=== PATIENT | male | born 1955 | race American Indian/Alaskan Native ===

== ENCOUNTER 2017-02-11 21:14 | Inpatient (IN) | payer MEDICAID ==
[2017-02-11 21:58] LABS: BASO # 0.1 K/uL (0.0-0.2); BASO % 0.7 % (0.0-2.0); EOS # 0.1 K/uL (0.0-0.7); EOS % 0.9 % (0.0-4.0); HEMATOCRIT 37.7 % (35.0-51.0); LYMPH % 39.3 % (20.0-40.0); MEAN CELL VOLUME 83.2 fL (80.0-94.0); MEAN CORPUSCULAR HEMOGLOBIN 26.5 pg (27.0-31.0); MEAN CORPUSCULAR HGB CONC 31.9 g/dL (33.0-37.0); MEAN PLATELET VOLUME 7.8 fL (7.2-11.7); MONO # 0.7 K/uL (0.0-0.8); MONO % 6.5 % (0.0-10.0); RED CELL DISTRIBUTION WIDTH 15.6 % (11.5-14.5); WHITE BLOOD COUNT 10.1 K/uL (4.8-10.8)
[2017-02-11 22:03] LABS: RBC URINE < 1 /hpf (0-3); URINE BILIRUBIN NEGATIVE (NEGATIVE); URINE BLOOD NEGATIVE (NEGATIVE); URINE COLOR Yellow (YELLOW); URINE GLUCOSE (UA) NORMAL (Normal); URINE KETONE TRACE mg/dL (NEGATIVE); URINE LEUKOCYTE ESTERASE NEG Leu/uL (Negative); URINE PROTEIN 1+ mg/dL (NEGATIVE); URINE UROBILINOGEN NORMAL mg/dL (0.2-1.0); WBC URINE 1 /hpf (0-5)
[2017-02-11 22:07] LABS: CHLORIDE 99 mmol/L (98-107); POTASSIUM 3.7 mmol/L (3.6-5.2); SODIUM 140 mmol/L (132-148)
[2017-02-11 22:09] LABS: GFR AFRICAN-AMERICAN > 60
[2017-02-11 22:10] LABS: ALB/GLOB RATIO 1.1 (1.0-2.1); ALKALINE PHOSPHATASE 104 U/L (38-126); ALT/SGPT 21 U/L (21-72); AST/SGOT 27 U/L (17-59); BILIRUBIN,TOTAL 0.3 mg/dL (0.2-1.3); BLOOD UREA NITROGEN 13 mg/dL (9-20); CALCIUM 8.6 mg/dl (8.6-10.4); CARBON DIOXIDE 26 mmol/L (22-30); GLUCOSE,RANDOM 111 mg/dL (75-110); TOTAL PROTEIN 7.6 g/dL (6.3-8.3)
[2017-02-11 22:11] LABS: ALCOHOL SERUM < 10 mg/dl (0-10)
--- NOTE | 2017-02-12 04:07 | C.PDOC ---
History Of Present Illness The patient, a 61 y/o male, presents to the ED requesting heroin detox. Patient states his last use was earlier today. He denies suicidal/homicidal ideation and has no physical complaints at this time. Time Seen by Provider: 02/11/17 22:37 Chief Complaint (Nursing): Substance Abuse History Per: Patient History/Exam Limitations: intoxication Onset/Duration Of Symptoms: Hrs Current Symptoms Are (Timing): Still Present Suicide/Self Injury Attempted (Context): None Modifying Factor(s): Other (+heroin) Associated Symptoms: denies: Suicidal Thoughts, Suicidal Plan Involuntary Hold By: None Recent travel outside of the [place]: No Additional History Per: Patient Past Medical History Reviewed: Historical Data, Nursing Documentation, Vital Signs Vital Signs: Last Vital Signs Temp 97.8 F 02/12/17 01:36 Pulse 80 02/12/17 01:36 Resp 20 02/12/17 01:36 BP 148/87 02/12/17 01:36 Pulse Ox 97 02/12/17 04:14 - Medical History PMH: Anxiety, Depression, HTN Denies: Diabetes, Hepatitis, HIV, Chronic Kidney Disease, Seizures, Sexually Transmitted Disease Surgical History: No Surg Hx - [facility] Procedures DETOXIFICATION SERVICES FOR SUBSTANCE ABUSE TREATMENT (05/24/16) GROUP PSYCHOTHERAPY (10/30/16) INDIV PSYCHOTHERAPY FOR SUBSTANCE ABUSE TREATMENT, SUPPORT (10/30/16) INDIVIDUAL PSYCHOTHERAPY, SUPPORTIVE (10/30/16) MEDICATION MANAGEMENT (10/30/16) MEDS MGMT FOR SUBSTANCE ABUSE TREATMENT, METHADONE MAINT (10/30/16) Family History: States: Unknown Family Hx - Social History Hx Tobacco Use: Yes Hx Alcohol Use: No Hx Substance Use: Yes - Immunization History Hx Tetanus Toxoid Vaccination: Yes Hx Influenza Vaccination: No Hx Pneumococcal Vaccination: No Review Of Systems Except As Marked, All Systems Reviewed And Found Negative. Psych: Positive for: Other (+request for heroin detox ). Negative for: Suicidal ideation Physical Exam - Physical Exam Appears: No Acute Distress Skin: Normal Color, Warm, Dry Head: Atraumatic, Normacephalic Eye(s): bilateral: PERRL, EOMI, Abnormal Pupil (small) Oral Mucosa: Moist Neck: Supple Chest: Symmetrical, No Deformity Cardiovascular: Rhythm Regular Respiratory: Normal Breath Sounds Extremity: Normal ROM, Capillary Refill (less than 2 seconds) Neurological/Psych: Oriented x3, Normal Speech Gait: Steady ED Course And Treatment - Laboratory Results Result Diagrams: 02/11/17 21:55 02/11/17 21:55 O2 Sat by Pulse Oximetry: 97 (on RA) Pulse Ox Interpretation: Normal Progress Note: Labs ordered and reviewed. Patient was found to have elevated blood pressure. Pt states he is prescribed Vasotec BID; he states he took his first dose today but has not yet taken the second dose. Patient received Clonidine PO, after his blood pressure was still elevated. Patient was evaluated by sheet ironworker. Patient was medically clear for detox admission. Disposition - Disposition Disposition: HOSPITALIZED Disposition Time: 07:06 Condition: GOOD - Clinical Impression Clinical Impression: Heroin abuse, Opiate abuse, continuous - PA / REFRIGERATING ENGINEER / Resident Statement MD/DO has reviewed & agrees with the documentation as recorded. - Scribe Statement The provider has reviewed the documentation as recorded by the Scribe (Alycia Em) All medical record entries made by the Scribe were at my direction and personally dictated by me. I have reviewed the chart and agree that the record accurately reflects my personal performance of the history, physical exam, medical decision making, and the department course for this patient. I have also personally directed, reviewed, and agree with the discharge instructions and disposition.
[2017-02-12] MEDS ORDERED: Aluminum Hydroxide/Magnesium Hydroxide Susp (30 mL) PO PRN (12:58)
[2017-02-12] MEDS ORDERED: Buprenorphine Hydrochloride 2 mg SL ONE ×2 (13:00)
--- NOTE | 2017-02-12 20:40 | PCM.PSYCH ---
Initial Psychiatric Evaluation - Initial Psychiatric Evaluation Type of Admission: Voluntary Legal Status: Capacity Chief Complaint (in patient's own words): I need help. Patient's Reaction to Hospitalization: I finally have a detox bed. History of Present Illness and Precipitating Events: Pt is 61yro single, living with sister, unemployed male, who started using heroin at age 39. He never used painkillers. He snorts 8-10 packs of heroin daily. Pt. denies use of any other substances. His mother is alive; his father is . He is 3rd in a sibship of 5; he is the only male in this sibship. Pt denies any family history of mental illness or substance abuse. Pt has never been in a psychiatric hospital nor on psychiatric meds. Pt graduated high school. 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 Pt has been in detox once before in [facility]. Pt has had one rehab at [facility]. He was sober from [id number]. Pt went to meetings at this time. Pt relapsed after losing his job at a SNF. He has hypertension. He had a DWI. Pt never served in the . Current Medications: Active Medications Generic Name Dose Route Start Last Admin Trade Name Freq PRN Reason Stop Dose Admin Acetaminophen 650 mg 02/12/17 12:57 Tylenol 325mg Tab PO Q4H PRN Fever greater than 101 F Al Hydrox/Mg Hydrox/Simethicone 30 ml 02/12/17 12:58 Maalox 30 Ml PO Q6 PRN Indigestion / Heartburn Buprenorphine HCl 6 mg 02/13/17 10:00 Subutex SL 02/16/17 09:59 .TAPER NANCY Taper Clonidine HCl 0.1 mg 02/12/17 12:58 02/12/17 19:55 Catapres PO 0.1 mg Q6 PRN Administration Other Enalapril Maleate 20 mg 02/12/17 20:15 Vasotec PO DAILY NANCY Hydroxyzine HCl 25 mg 02/12/17 00:35 02/12/17 01:14 Atarax PO 25 mg Q6 PRN Administration Anxiety Influenza Virus Vaccine 45 mcg 02/15/17 10:00 Afluria IM 02/15/17 10:01 .ONCE ONE Ondansetron HCl 4 mg 02/12/17 00:36 Zofran Tab PO Q6 PRN Nausea/Vomiting Pneumococcal Polyvalent Vaccine 0.5 ml 02/15/17 10:00 Pneumovax 23 Vaccine IM 02/15/17 10:01 .ONCE ONE Trazodone HCl 50 mg 02/12/17 00:35 02/12/17 01:14 Desyrel PO 50 mg HS PRN Administration Insomnia Past Psychiatric History - Past Psychiatric History Previous Treatment History: None Pertinent Medical Hx (Current Medical&Sleep Prob, Allergies): Allergies Allergy/AdvReac Type Severity Reaction Status Date / Time No Known Allergies Allergy Verified 10/30/16 00:52 Enalapril Maleate [Vasotec] 20 mg PO DAILY 10/30/16 Review of Systems - Constitutional Constitutional: Malaise - EENT Eyes: UNREMARKABLE Ears: UNREMARKABLE Nose/Mouth/Throat: UNREMARKABLE - Cardiovascular Cardiovascular: UNREMARKABLE - Respiratory Respiratory: UNREMARKABLE - Gastrointestinal Gastrointestinal: Cramping - Genitourinary Genitourinary: UNREMARKABLE - Reproductive: Male Reproductive:Male: UNREMARKABLE - Musculoskeletal Musculoskeletal: Arthralgias, Myalgias - Integumentary Integumentary: UNREMARKABLE - Neurological Neurological: UNREMARKABLE - Psychiatric Psychiatric: UNREMARKABLE - Endocrine Endocrine: UNREMARKABLE - Hematologic/Lymphatic Hematologic: UNREMARKABLE Mental Status Examination - Personal Presentation Personal Presentation: Looks stated age - Affect Affect: Constricted - Motor Activity Motor Activity: Calm - Reliability in Providing Information Reliability in Providing Information: Good - Speech Speech: Organized - Mood Mood: Anxious - Formal Thought Process Formal Thought Process: No Impairment - Cognitive Functions Orientation: Person, Place, Situation, Time Sensorium: Alert Attention/Concentration: Attentive Abstract Thinking: As evidence by literal perception of proverbs Estimate of Intelligence: Average Judgement: Intact, as evidence by: Good judgement Memory: Recent intact, as evidence by: Ability to recall events of the day, Remote intact, as evidenced by: Abilit to recall sig. life events - Risk Risk: Withdrawal - Strength & Assets Inventory Strength & Assets Inventory: Family support, Employment history DSM 5 DX - Recommended/Plan of Treatment Treatment Recommendations and Plan of Treatment: Opiate withdrawal, severe Opiate use disorder, severe Opiate withdrawal, severe, Subutex protocol, Group, Milieu, Recreational, Individual psychotherapy, CBT and CA Opiate use disorder, severe, Group, Milieu, Recreational, Individual psychotherapy, CBT and CA Projected ELOS: 5 days Prognosis: good Discharge Plan and Discharge Criteria: no acute withdrawal symptoms - Smoking Cessation Smoking Cessation Initiated: No
[2017-02-13] MEDS: Buprenorphine Hydrochloride 2 mg SL SCH (10:10)
--- NOTE | 2017-02-13 15:17 | PCM.PYCHPN ---
Psychiatric Progress Note - Psychiatric Progress Note Problems Identified/Issues Discussed: Pt was seen, chart reviewed and case discussed. Pt reports detox is going "pretty good." Pt plans to attend [facility] out- patient program immediately following discharge to maintain sobriety. States he tried in-patient rehab in the past and did not like it. Also not interested in medical management. Pt is also considering moving to [place]; states he was able to stay sober for 8 years after moving away. Psychiatric education and support given. Mental Status Examination - Cognitive Function Orientation: Person, Place, Situation, Time - Mood Mood: Anxious - Affect Affect: Constricted - Formal Thought Process Formal Thought Process: No Impairment - Homicidal Ideation Homicidal Ideation: No Goal/Treatment Plan - Goal/Treatment Plan Progress Toward Problem(s) and Goals/Treatment Plan: 1. Opiate Withdrawal -continue Subutex taper protocol -Supportive psychotherapy, PA, CBT -Continue group activities Estimated Date of D/C: 02/15/17
[2017-02-13] MEDS: Albuterol HFA 90 mcg/actuation (8 g) INH PRN (19:15)
[2017-02-14] MEDS: Albuterol HFA 90 mcg/actuation (8 g) INH PRN (09:08)
[2017-02-14] MEDS: Buprenorphine Hydrochloride 2 mg SL SCH (09:10)
[2017-02-14 11:09] VITALS: RESP 18
--- NOTE | 2017-02-14 13:30 | PCM.PYCHPN ---
Psychiatric Progress Note - Psychiatric Progress Note Patient seen today, length of contact: 16 min Patient Chief Complaint: "I can't leave today" Problems Identified/Issues Discussed: Pt was seen, chart reviewed and case discussed. He says he is still withdrawing (has mild sxs) and that he has his bro in law at home who will leave tomorrow. Since he uses heroin too, pt does not want to be around him. Support and psychoed given ND used Detox is extended one day due to sxs Medication Change: Yes (sbx detox changes daily, add jose e) Medical Record Reviewed: Yes Mental Status Examination - Cognitive Function Orientation: Person, Place, Situation, Time Memory: Impaired Attention: WNL Concentration: Poor Association: WNL Fund of Knowledge: WNL - Mood Mood: Anxious - Affect Affect: Constricted - Speech Speech: Appropriate - Formal Thought Process Formal Thought Process: No Impairment - Suicidal Ideation Suicidal Ideation: No - Homicidal Ideation Homicidal Ideation: No Goal/Treatment Plan - Goal/Treatment Plan Need for Continued Stay: Discharge may exacerbated symptoms, Severe functional impairment Progress Toward Problem(s) and Goals/Treatment Plan: Opiate Withdrawal: -continue Subutex taper protocol -Supportive psychotherapy, ND, CBT -Continue group activities - ND and CBt HTN: - Add jose e, whcih he used before Estimated Date of D/C: 02/16/17
[2017-02-15] MEDS: Buprenorphine Hydrochloride 2 mg SL SCH (09:01)
[2017-02-15] MEDS: Albuterol HFA 90 mcg/actuation (8 g) INH PRN (09:01)
[2017-02-15] MEDS ORDERED: Influenza Virus Vaccine 45 mcg/0.5 ml Syr IM ONE (10:00)
[2017-02-15] MEDS ORDERED: Pneumococcal 23-Valent Vaccine IM ONE (10:00)
--- NOTE | 2017-02-15 12:28 | PCM.PYCHPN ---
Psychiatric Progress Note - Psychiatric Progress Note Patient seen today, length of contact: 15 min Patient Chief Complaint: "I need one more day" Problems Identified/Issues Discussed: The pt is seen, chart reviewed, case discussed with staff. The pt is compliant with medications and reports no side-effects. Symptoms are improving but needs more time to stabilize. See note from yesterday re his relapse risk if he leaves today. After care discussed, support and psychoeducation given. Medication Change: Yes (sbx detox changes daily, add jose e) Medical Record Reviewed: Yes Mental Status Examination - Cognitive Function Orientation: Person, Place, Situation, Time Memory: Impaired Attention: WNL Concentration: Poor Association: WNL Fund of Knowledge: WNL - Mood Mood: Anxious - Affect Affect: Constricted - Speech Speech: Appropriate - Formal Thought Process Formal Thought Process: No Impairment - Suicidal Ideation Suicidal Ideation: No - Homicidal Ideation Homicidal Ideation: No Goal/Treatment Plan - Goal/Treatment Plan Need for Continued Stay: Discharge may exacerbated symptoms, Severe functional impairment Progress Toward Problem(s) and Goals/Treatment Plan: Opiate Withdrawal: -continue Subutex taper protocol -Supportive psychotherapy, [place], CBT -Continue group activities - TX and CBt HTN: - Added yimi dorantes he used before Estimated Date of D/C: 02/16/17
[2017-02-16 06:15] VITALS: PULSE 64; TEMP 98.2; O2SAT 99
--- NOTE | 2017-02-16 08:52 | PCM.PYCHDC ---
Mental Status Examination - Mental Status Examination Orientation: Person, Place, Situation, Time Memory: Impaired Mood: Anxious Affect: Constricted Speech: Appropriate Attention: WNL Concentration: Poor Association: WNL Fund of Knowledge: WNL Formal Thought Process: No Impairment Suicidal Ideation: No Current Homicidal Ideation?: No Discharge Summary - Discharge Note Reason for Hospitalization: Heroin detox Consultations:: List each consultation separately and include: 1. Reason for request. 2. Findings. 3. Follow-up Summary of Hospital Course include:: 1. Description of specific treatment plan utilized for patients during their course of treatmen. 2. Summarize the time- course for resolution of acute symptoms and/or regressed behaviors. 3. Describe issues identified and worked on during hospitalization. 4. Describe medication utilized. 5. Describe medical problems identified and treated. 6. Reassessment of suicide risk Summary of Hospital Course: Hospital course: The pt was admitted and started on treatment with psychotherapy, support, psychoeducation and medications. VA and CBT used. The pt attended groups and activities, as well as milieu therapy. All the risks and benefits of medications are discussed and the patient understood and agreed. After care discussed with the patient. He decided to go to [facility] but he asked to stay one more day to prevent relapse. - Final Diagnosis (DSM 5) Condition upon Discharge: GOOD DSM 5: Opioid withdrawl opioid use d/o - severe Disposition: HOME/ ROUTINE Follow-up Treatment Plan: Continue below medications after discharge. Follow after care plan as discussed. [facility] Use relapse prevention skills Return to ER or call 911 if suicidal, homicidal or symptoms relapse. Stay away from stress, alcohol and drugs. Prescriptions/Medication Reconciliation: traZODone [Desyrel] 100 mg PO HS PRN #30 tab PRN Reason: Insomnia amLODIPine [Norvasc] 5 mg PO DAILY #30 tab Enalapril Maleate [Vasotec] 20 mg PO DAILY #30 tab Albuterol HFA [Ventolin HFA 90 mcg/actuation (8 g)] 1 puff INH RQ4 PRN #1 inhaler PRN Reason: sibilant musical ronchi - Smoking Cessation Smoking Cessation Medication prescribed: No - Antipsychotic Medications Pt discharged on 2 or more routine antipsychotic medications: No
[2017-02-16 09:26] VITALS: BP 152/97
[2017-02-16] MEDS ORDERED: Buprenorphine Hydrochloride 2 mg SL ONE (10:00)
== END 2017-02-16 10:50 | disposition home or self-care (01) | DRG 745 ==
LOC: C.ER 21:14 → C.7D 23:50
PROVIDERS: ADMIT Psychiatry & Neurology Psychiatry; ATTEND Psychiatry & Neurology Psychiatry
PROC: HZ2ZZZZ Detoxification Services for Substance Abuse Treatment (ICD-10-PCS; principal; 2017-02-11)
PROC: HZ59ZZZ Individual Psychotherapy for Substance Abuse Treatment, Supportive (ICD-10-PCS; 2017-02-11)
PROC: HZ46ZZZ Group Counseling for Substance Abuse Treatment, Psychoeducation (ICD-10-PCS; 2017-02-11)
DX: F11.23 Opioid dependence with withdrawal (principal); I10 Essential (primary) hypertension; F17.210 Nicotine dependence, cigarettes, uncomplicated; F32.9 Major depressive disorder, single episode, unspecified; Z23 Encounter for immunization

== ENCOUNTER 2018-06-24 16:16 | Inpatient (IN) | payer MEDICAID, OTHER ==
[2018-06-24 17:09] LABS: BASO % 0.5 % (0.0-2.0); EOS # 0.1 K/uL (0.0-0.7); EOS % 1.2 % (0.0-4.0); LYMPH # 2.2 K/uL (1.0-4.3); LYMPH % 31.9 % (20.0-40.0); MEAN CELL VOLUME 84.3 fL (80.0-94.0); MEAN CORPUSCULAR HEMOGLOBIN 27.1 pg (27.0-31.0); MEAN CORPUSCULAR HGB CONC 32.2 g/dL (33.0-37.0); MEAN PLATELET VOLUME 8.3 fL (7.2-11.7); MONO # 0.4 K/uL (0.0-0.8); MONO % 6.1 % (0.0-10.0); NEUT # 4.1 K/uL (1.8-7.0); NEUT % 60.3 % (50.0-75.0); NRBC % 0.1 % (0.0-2.0); RBC 4.43 Mil/uL (4.40-5.90); RED CELL DISTRIBUTION WIDTH 16.3 % (11.5-14.5); WHITE BLOOD COUNT 6.8 K/uL (4.8-10.8)
[2018-06-24 17:24] LABS: ALB/GLOB RATIO 1.3 (1.0-2.1); ALT/SGPT 42 U/L (21-72); AST/SGOT 36 U/L (17-59); BLOOD UREA NITROGEN 14 mg/dL (9-20); CALCIUM 9.1 mg/dl (8.6-10.4); GFR AFRICAN-AMERICAN > 60; GFR NON-AFRICAN AMERICAN > 60
[2018-06-24 17:27] LABS: BARBITURATES, UR NEGATIVE (NEGATIVE); BENZODIAZEPINES, UR NEGATIVE (NEGATIVE); PHENCYCLIDINE, UR NEGATIVE (NEGATIVE)
[2018-06-24] MEDS ORDERED: Potassium Chloride 20 mEq ER Tab PO STA (17:31)
--- NOTE | 2018-06-24 17:35 | C.PDOC ---
History Of Present Illness 62 year old male presents to the emergency department as a pre-screen for heroin detox. Patient reports he last used heroin prior to arrival. He denies suicidal or homicidal ideation. Time Seen by Provider: 06/24/18 16:25 Chief Complaint (Nursing): Substance Abuse History Per: Patient History/Exam Limitations: no limitations Onset/Duration Of Symptoms: Hrs Current Symptoms Are (Timing): Still Present Suicide/Self Injury Attempted (Context): None Modifying Factor(s): Other (heroin) Associated Symptoms: denies: Suicidal Thoughts, Suicidal Plan Past Medical History Reviewed: Historical Data, Nursing Documentation, Vital Signs Vital Signs: Last Vital Signs Temp 98.4 F 06/24/18 18:24 Pulse 83 06/24/18 18:24 Resp 20 06/24/18 18:24 BP 101/61 06/24/18 18:24 Pulse Ox 97 06/24/18 18:24 - Medical History PMH: Anxiety, Depression, HTN Denies: Diabetes, Hepatitis, HIV, Chronic Kidney Disease, Seizures, Sexually Transmitted Disease Surgical History: No Surg Hx - [facility] Procedures DETOXIFICATION SERVICES FOR SUBSTANCE ABUSE TREATMENT (02/11/17) GROUP CHIEF TECHNICIAN X RAY FOR SUBSTANCE ABUSE TREATMENT, PSYCHOEDUCATION (02/11/17) GROUP PSYCHOTHERAPY (10/30/16) INDIV PSYCHOTHERAPY FOR SUBSTANCE ABUSE TREATMENT, SUPPORT (02/11/17) INDIVIDUAL PSYCHOTHERAPY, SUPPORTIVE (10/30/16) MEDICATION MANAGEMENT (10/30/16) MEDS MGMT FOR SUBSTANCE ABUSE TREATMENT, METHADONE MAINT (10/30/16) Family History: States: No Known Family Hx - Social History Hx Tobacco Use: Yes Hx Alcohol Use: Yes Hx Substance Use: Yes - Immunization History Hx Tetanus Toxoid Vaccination: Yes Hx Influenza Vaccination: No Hx Pneumococcal Vaccination: No Review Of Systems Except As Marked, All Systems Reviewed And Found Negative. Psych: Negative for: Suicidal ideation Physical Exam - Physical Exam Appears: Non-toxic, No Acute Distress Skin: Warm, Dry Head: Atraumatic, Normacephalic Eye(s): bilateral: Normal Inspection Oral Mucosa: Moist Throat: Normal, No Erythema, No Exudate Neck: Normal, Supple Chest: Symmetrical, No Tenderness Cardiovascular: Rhythm Regular, No Murmur Respiratory: Normal Breath Sounds, No Rales, No Rhonchi, No Wheezing Gastrointestinal/Abdominal: Normal Exam, Soft, No Tenderness, No Guarding, No Rebound Neurological/Psych: Oriented x3, Normal Speech, Normal Cognition ED Course And Treatment - Laboratory Results Result Diagrams: 06/24/18 17:07 06/24/18 17:07 O2 Sat by Pulse Oximetry: 99 (RA) Pulse Ox Interpretation: Normal Medical Decision Making Medical Decision Making: Plan: Alcohol Serum CMP Drug Screen CBC Potassium Chloride 20 meq PO Urinalysis 1829 - patient seen by crisis and will admit to Dr. Guerra's service Disposition Discussed With .: Ancelmo Guerra Doctor Will See Patient In The: Hospital Counseled Patient/Family Regarding: Studies Performed, Diagnosis - Disposition Disposition: HOSPITALIZED Disposition Time: 18:30 Condition: FAIR Forms: [employer] (Dutch) - Clinical Impression Clinical Impression: Drug abuse - Scribe Statement The provider has reviewed the documentation as recorded by the Scribe (Dionisio Samaniego) Provider Attestation: All medical record entries made by the Scribe were at my direction and personally dictated by me. I have reviewed the chart and agree that the record accurately reflects my personal performance of the history, physical exam, medical decision making, and the department course for this patient. I have also personally directed, reviewed, and agree with the discharge instructions and disposition.
[2018-06-24 17:37] LABS: SQUAMOUS EPITHIAL 1 /hpf (0-5); URINE AMORPHOUS SEDIMENT RARE /ul (<OCC); URINE BILIRUBIN NEGATIVE (NEGATIVE); URINE BLOOD NEGATIVE (NEGATIVE); URINE CALCIUM OXALATE CRYSTALS MOD /hpf (<OCC); URINE CLARITY Hazy (Clear); URINE COLOR Yellow (YELLOW); URINE GLUCOSE (UA) NORMAL (Normal); URINE LEUKOCYTE ESTERASE NEG Leu/uL (Negative); URINE PROTEIN 1+ mg/dL (NEGATIVE)
[2018-06-24 17:46] LABS: OPIATES, UR POSITIVE (NEGATIVE)
[2018-06-24] MEDS ORDERED: Potassium Chloride 20 mEq ER Tab PO ONE (18:35)
--- NOTE | 2018-06-24 18:43 | PCM.BM ---
<Estella Siddiqi - Last Filed: 06/24/18 18:41> Treatment Plan Problems - Problems identified on initial assessmt potiential for opiate withdrawal Date Initiated: 06/24/18 Time Initiated: 18:42 Assessment reference: NA Status: Active Treatment assets and liabiliti Patient Assests: ADL independent, cognitively intact Patient Liabilities: substance abuse, medical problems - Milieu Protocol Maintain good personal hygiene: daily Encourage regular showers, daily Remind patient to perform daily oral care, daily Assist patient to perform ADL's Maintain personal safety: every shift Educate patient to report safety concerns to staff, every shift Monitor environment for contraband/sharps Medication safety: Monitor for expected outcome, potential side effects: every shift, Assess barriers to learning: every shift, Assess readiness for medication education: every shift <Karen Dickerson - Last Filed: 06/25/18 23:41> - Diagnosis (1) Opiate abuse, continuous Status: Acute Interventions: 06/25/18 23:41 * Assess 7x/week regarding severity of withdrawal * Educate regarding risks, benefits, side effects and alternatives of medications * Use Motivational Interviewing for abstinence * Use CBT for relapse prevention * Medication management for withdrawal symptoms * Encourage medication assisted treatment *
[2018-06-24] MEDS ORDERED: Albuterol HFA 90 mcg/actuation (8 g) INH PRN (19:32)
[2018-06-25 08:41] LABS: ALB/GLOB RATIO 1.2 (1.0-2.1); ALBUMIN 3.5 g/dL (3.5-5.0); ALT/SGPT 42 U/L (21-72); AST/SGOT 32 U/L (17-59); BLOOD UREA NITROGEN 11 mg/dL (9-20); CALCIUM 8.6 mg/dl (8.6-10.4); GFR AFRICAN-AMERICAN > 60; GFR NON-AFRICAN AMERICAN > 60
--- NOTE | 2018-06-25 11:36 | PCM.PSYCH ---
Initial Psychiatric Evaluation - Initial Psychiatric Evaluation Type of Admission: Voluntary Legal Status: Capacity Chief Complaint (in patient's own words): "I just want to stop using heroin" History of Present Illness and Precipitating Events: HPI: Patient is a 62 year old male with history of hypertension , heroin abuse who reports for detox from heroin. He states he has been using 6- 8 bags intranasally for the past 15-20 years. He last used 5 to 6 bags yesterday at about 1pm. He states he has been to detox before, last been to [facility] in [place], after which he remained clean for a few months. He stated he started using again, and now just wants to stop using heroin. He denies any other drug use. He now complaints of feeling sick, with abdominal cramping, feeling shaky, nausea, however denies vomiting, diarrhea. He admits to feeling a little sad, however denies any suicidal or homicidal thoughts. As per prior notes, patient has a prior history of suicide attempts via heroin overdose. He was admitted recently in January 2017 for heroin detox and was referred to [facility] for outpatient followup, however patient states that he never followed up. Past psychiatric hospitalizations: has been to detox multiple times PMH: Hypertension PSH: none Family hx: no pyschiatric illness Social hx: Not employed. Currently lives with his sister in an apartment in [place]. Supported by his sister. Single, not , no children. Planning on moving to [place] to live with his cousin, who is a counselor. Smokes cigarettes 1ppd x16 years. Drinks ETOH intermittently - once or twice a year. (+ ) Heroin use, intranasally 6-8 bags daily for 15-20 years. Meds: Amlodipine, Losartan Allergies: NKDA Current Medications: Active Medications Generic Name Dose Route Start Last Admin Trade Name Freq PRN Reason Stop Dose Admin Al Hydrox/Mg Hydrox/Simethicone 30 ml 06/25/18 14:00 Maalox 30 Ml PO TID PRN Indigestion / Heartburn Albuterol 1 puff 06/24/18 19:32 Ventolin Hfa 90 Mcg/Actuation (8 G) INH RQ6 PRN Shortness of Breath Amlodipine Besylate 10 mg 06/25/18 10:00 06/25/18 10:17 Norvasc PO 10 mg DAILY NANCY Administration Clonidine HCl 0.1 mg 06/24/18 19:39 06/25/18 06:37 Catapres PO 0.1 mg Q8H PRN Administration opiate withdrawal Hydroxyzine HCl 25 mg 06/25/18 09:00 Atarax PO Q4H PRN Anxiety Loperamide HCl 2 mg 06/25/18 14:00 Imodium PO Q8 PRN Diarrhea Losartan Potassium 50 mg 06/25/18 10:00 06/25/18 10:17 Cozaar PO 50 mg DAILY NANCY Administration Ondansetron HCl 4 mg 06/25/18 14:00 Zofran Tab PO Q8 PRN Nausea/Vomiting Trazodone HCl 50 mg 06/24/18 20:11 06/24/18 21:33 Desyrel PO 50 mg HS PRN Administration Insomnia Past Psychiatric History - Past Psychiatric History Previous Treatment History: Inpatient Pertinent Medical Hx (Current Medical&Sleep Prob, Allergies): Allergies Allergy/AdvReac Type Severity Reaction Status Date / Time No Known Allergies Allergy Verified 06/24/18 16:18 Enalapril Maleate [Vasotec] 20 mg PO DAILY 10/30/16 Albuterol HFA [Ventolin HFA 90 mcg/actuation (8 g)] 1 puff INH RQ4 PRN #1 inhaler 02/16/17 Enalapril Maleate [Vasotec] 20 mg PO DAILY #30 tab 02/16/17 amLODIPine [Norvasc] 5 mg PO DAILY #30 tab 02/16/17 traZODone [Desyrel] 100 mg PO HS PRN #30 tab 02/16/17 Review of Systems - Psychiatric Psychiatric: Depression. absent: Anxiety, Homicidal Ideation, Panic Attacks, Paranoia, Suicidal Ideation, Visual Hallucinations Mental Status Examination - Personal Presentation Personal Presentation: Looks older than stated age - Affect Affect: Constricted - Motor Activity Motor Activity: Calm - Reliability in Providing Information Reliability in Providing Information: Fair - Speech Speech: Organized, Relevant, Coherent - Mood Mood: Depressed - Formal Thought Process Formal Thought Process: No Impairment - Hallucinations/Delusions Additional comments: No hallucinations No delusions - Obsessions/Compulsions Obsessions: No Compulsions: No - Cognitive Functions Orientation: Person, Place, Situation, Time Sensorium: Alert Estimate of Intelligence: Below average Judgement: Imparied, as evidence by: Poor judgement Memory: Recent intact, as evidence by: Ability to recall events of the day - Risk Risk: Withdrawal, Diminished functioning DSM 5 DX - DSM 5 DSM 5 Diagnosis: Opioid use disorder, severe Opioid withdrawal - Recommended/Plan of Treatment Treatment Recommendations and Plan of Treatment: Clonidine 0.1mg PO Q8 PRN opiate withdrawal Atarax 25mg PO Q4 PRN Loperamide 2mg PO Q8 PRN Zofran 4mg PO Q8 PRN Trazodone 50mg PO HS PRN Maalox 30ml PO TID PRN All risks, benefits and alternatives of medications discussed, patient agreed and understood Attend groups and activities Supportive therapy and psychoeducation Motivational interviewing for abstinence CBT for relapse prevention Encourage MAT Refer to rehab or IOP and self-help groups Smoking cessation with motivational interviewing 35 mins Case discussed with Dr. Tuan Licea, PGY1
[2018-06-25] MEDS ORDERED: Buprenorphine Hydrochloride 2 mg SL ONE ×2 (13:18→14:30)
[2018-06-25] MEDS ORDERED: Aluminum Hydroxide/Magnesium Hydroxide Susp (30 mL) PO PRN (14:00)
[2018-06-26] MEDS: Buprenorphine Hydrochloride 2 mg SL SCH (09:31)
--- NOTE | 2018-06-26 11:30 | PCM.PYCHPN ---
Psychiatric Progress Note - Psychiatric Progress Note Patient seen today, length of contact: 18 mins Patient Chief Complaint: "I just want to stop using heroin" Problems Identified/Issues Discussed: Patient is seen, chart reviewed, case discussed with staff. Support and psychoeducation given, CBT and MO used briefly. He states that he is still feeling tremors and still undergoing withdrawal. She states he has 2 episodes of nonbloody watery diarrhea today. Denies vomiting, complains of persistent nausea and decreased appetite. He complains of body aches, back ache. He states he feels slightly anxious and depressed, however denies suicidal or homicidal ideaiton. He denies auditory or visual hallucinations. Admits to feeling a little paranoid, states he feeling everything is going wrong. Still states that he is planning on moving to [place]. Patient denies adverse effects from medications, risks discussed. Medication Change: Yes (meds change daily with detox) Medical Record Reviewed: Yes Mental Status Examination - Cognitive Function Orientation: Person, Place, Situation, Time Memory: Intact Attention: WNL Concentration: WNL Association: WNL Fund of Knowledge: WNL - Mood Mood: Depressed, Anxious - Affect Affect: Constricted - Speech Speech: Appropriate - Formal Thought Process Formal Thought Process: Paranoia (Mild paranoia as per patient. ) - Suicidal Ideation Suicidal Ideation: No - Homicidal Ideation Homicidal Ideation: No Goal/Treatment Plan - Goal/Treatment Plan Need for Continued Stay: Discharge may exacerbated symptoms Progress Toward Problem(s) and Goals/Treatment Plan: Subutex taper Clonidine 0.1mg PO Q8 PRN opiate withdrawal Atarax 25mg PO Q4 PRN Loperamide 2mg PO Q8 PRN Zofran 4mg PO Q8 PRN Trazodone 50mg PO HS PRN Seroquel 50mg PO HS Maalox 30ml PO TID PRN All risks, benefits and alternatives of medications discussed, patient agreed and understood Attend groups and activities Supportive therapy and psychoeducation Motivational interviewing for abstinence CBT for relapse prevention Encourage MAT Refer to rehab or IOP and self-help groups Smoking cessation with motivational interviewing Case discussed with Dr. Tuan Licea, PGY1
[2018-06-27] MEDS: Buprenorphine Hydrochloride 2 mg SL SCH (09:57)
--- NOTE | 2018-06-27 11:34 | PCM.PYCHPN ---
Psychiatric Progress Note - Psychiatric Progress Note Patient seen today, length of contact: 18 mins Patient Chief Complaint: "I'm feeling better" Problems Identified/Issues Discussed: Patient is seen, chart reviewed, case discussed with staff. Support and psychoeducation given, CBT and DE used briefly. He states that he feels tired, has abdominal cramping, back pain. He denies nausea, vomiting, diarrhea, headache. He states he feels slightly depressed, but states he is getting better. He denies suicidal or homicidal ideation. He denies feeling anxious currently. He denies auditory or visual hallucinations. He denies feeling paranoid right now. Still states that he is planning on moving to [place]. Patient denies adverse effects from medications, risks discussed. Medication Change: Yes (meds change daily with detox) Medical Record Reviewed: Yes Mental Status Examination - Cognitive Function Orientation: Person, Place, Situation, Time Memory: Intact Attention: WNL Concentration: WNL Association: WNL Fund of Knowledge: WN - Mood Mood: Depressed - Affect Affect: Constricted, Depressed - Speech Speech: Appropriate - Formal Thought Process Formal Thought Process: No Impairment - Suicidal Ideation Suicidal Ideation: No - Homicidal Ideation Homicidal Ideation: No Goal/Treatment Plan - Goal/Treatment Plan Need for Continued Stay: Discharge may exacerbated symptoms Progress Toward Problem(s) and Goals/Treatment Plan: Subutex taper Clonidine 0.1mg PO Q8 PRN opiate withdrawal Atarax 25mg PO Q4 PRN Loperamide 2mg PO Q8 PRN Zofran 4mg PO Q8 PRN Trazodone 50mg PO HS PRN Seroquel 50mg PO HS Maalox 30ml PO TID PRN All risks, benefits and alternatives of medications discussed, patient agreed and understood Attend groups and activities Supportive therapy and psychoeducation Motivational interviewing for abstinence CBT for relapse prevention Encourage MAT Refer to rehab or IOP and self-help groups Smoking cessation with motivational interviewing Case discussed with Dr. Tuan Licea, PGY1
[2018-06-28] MEDS: Buprenorphine Hydrochloride 2 mg SL SCH (09:46)
--- NOTE | 2018-06-28 12:54 | PCM.PYCHPN ---
Psychiatric Progress Note - Psychiatric Progress Note Patient seen today, length of contact: 16 min Patient Chief Complaint: "Better" Problems Identified/Issues Discussed: The pt is seen, chart reviewed, case discussed with staff. The pt is compliant with medications and reports no side-effects. Symptoms are improving but needs more time to stabilize. After care discussed, support and psychoeducation given. Medication Change: Yes (meds change daily with detox) Medical Record Reviewed: Yes Mental Status Examination - Cognitive Function Orientation: Person, Place, Situation, Time Memory: Intact Attention: WNL Concentration: WNL Association: WNL Fund of Knowledge: WNL - Mood Mood: Depressed - Affect Affect: Constricted, Depressed - Speech Speech: Appropriate - Formal Thought Process Formal Thought Process: No Impairment - Suicidal Ideation Suicidal Ideation: No - Homicidal Ideation Homicidal Ideation: No Goal/Treatment Plan - Goal/Treatment Plan Need for Continued Stay: Discharge may exacerbated symptoms, Severe functional impairment Progress Toward Problem(s) and Goals/Treatment Plan: Continue medications Support and psychoeducation daily Attend groups and activities daily After care planning by counselor
[2018-06-29 06:14] VITALS: TEMP 97.8
[2018-06-29 08:53] VITALS: BP 135/80; PULSE 87; RESP 20; O2SAT 100
[2018-06-29] MEDS: Buprenorphine Hydrochloride 2 mg SL SCH (09:16)
--- NOTE | 2018-06-29 10:17 | PCM.PYCHDC ---
Mental Status Examination - Mental Status Examination Orientation: Person, Place, Situation, Time Memory: Intact Mood: Neutral Affect: Constricted Speech: Soft Attention: WNL Concentration: WNL Association: WNL Fund of Knowledge: WNL Formal Thought Process: No Impairment Description of patient's judgement and insight: good, fair Psychotic Thoughts and Behaviors: Denies any AVH Suicidal Ideation: No Current Homicidal Ideation?: No Discharge Summary - Discharge Note Reason for Hospitalization: HPI: Patient is a 62 year old male with history of hypertension , heroin abuse who reports for detox from heroin. He states he has been using 6- 8 bags intranasally for the past 15-20 years. He last used 5 to 6 bags yesterday at about 1pm. He states he has been to detox before, last been to [facility] in [place], after which he remained clean for a few months. He stated he started using again, and now just wants to stop using heroin. He denies any other drug use. He now complaints of feeling sick, with abdominal cramping, feeling shaky, nausea, however denies vomiting, diarrhea. He admits to feeling a little sad, however denies any suicidal or homicidal thoughts. As per prior notes, patient has a prior history of suicide attempts via heroin overdose. He was admitted recently in January 2017 for heroin detox and was referred to [facility] for outpatient followup, however patient states that he never followed up. Past psychiatric hospitalizations: has been to detox multiple times PMH: Hypertension PSH: none Family hx: no pyschiatric illness Social hx: Not employed. Currently lives with his sister in an apartment in [place]. Supported by his sister. Single, not , no children. Planning on moving to [place] to live with his cousin, who is a counselor. Smokes cigarettes 1ppd x16 years. Drinks ETOH intermittently - once or twice a year. (+ ) Heroin use, intranasally 6-8 bags daily for 15-20 years. Meds: Amlodipine, Losartan Allergies: NKDA Consultations:: List each consultation separately and include: 1. Reason for request. 2. Findings. 3. Follow-up Summary of Hospital Course include:: 1. Description of specific treatment plan utilized for patients during their course of treatmen. 2. Summarize the time- course for resolution of acute symptoms and/or regressed behaviors. 3. Describe issues identified and worked on during hospitalization. 4. Describe medication utilized. 5. Describe medical problems identified and treated. 6. Reassessment of suicide risk - Final Diagnosis (DSM 5) Condition upon Discharge: FAIR DSM 5: Opioid use disorder, severe Opioid withdrawal Disposition: HOME/ ROUTINE Prescriptions/Medication Reconciliation: Albuterol HFA [Ventolin HFA 90 mcg/actuation (8 g)] 1 puff INH RQ6 PRN #1 inhaler PRN Reason: Shortness Of Breath amLODIPine [Norvasc] 10 mg PO DAILY #30 tab Losartan [Cozaar] 50 mg PO DAILY #30 tab traZODone [Desyrel] 100 mg PO HS PRN #30 tab PRN Reason: Insomnia
== END 2018-06-29 10:45 | disposition home or self-care (01) | DRG 745 ==
LOC: C.ER 16:16 → C.7D 18:29
PROVIDERS: ADMIT Psychiatry & Neurology Psychiatry; ATTEND Psychiatry & Neurology Psychiatry
PROC: HZ2ZZZZ Detoxification Services for Substance Abuse Treatment (ICD-10-PCS; principal; 2018-06-24)
PROC: HZ52ZZZ Individual Psychotherapy for Substance Abuse Treatment, Cognitive-Behavioral (ICD-10-PCS; 2018-06-24)
PROC: HZ59ZZZ Individual Psychotherapy for Substance Abuse Treatment, Supportive (ICD-10-PCS; 2018-06-24)
PROC: HZ56ZZZ Individual Psychotherapy for Substance Abuse Treatment, Psychoeducation (ICD-10-PCS; 2018-06-24)
PROC: HZ42ZZZ Group Counseling for Substance Abuse Treatment, Cognitive-Behavioral (ICD-10-PCS; 2018-06-24)
PROC: HZ46ZZZ Group Counseling for Substance Abuse Treatment, Psychoeducation (ICD-10-PCS; 2018-06-24)
PROC: GZHZZZZ Group Psychotherapy (ICD-10-PCS; 2018-06-24)
PROC: GZ58ZZZ Individual Psychotherapy, Cognitive-Behavioral (ICD-10-PCS; 2018-06-24)
PROC: GZ56ZZZ Individual Psychotherapy, Supportive (ICD-10-PCS; 2018-06-24)
DX: F11.23 Opioid dependence with withdrawal (principal); F17.210 Nicotine dependence, cigarettes, uncomplicated; G47.00 Insomnia, unspecified; I10 Essential (primary) hypertension; Z91.5 Personal history of self-harm